=== PATIENT | male | born 2000 | race Caucasian/White ===

== ENCOUNTER 2019-01-24 10:39 | Outpatient (CLI) | payer OTHER ==
--- NOTE | 2019-01-24 11:15 | ULT ---
Exam: Limited abdominal ultrasound: HISTORY: Right lower quadrant pain, right inguinal pain, concern for hernia COMPARISON: None FINDINGS: Right lower quadrant and right inguinal canal region and region of pain as evaluated. No evidence for a bowel containing hernia. No abscess or abnormal fluid collection. IMPRESSION: Unremarkable limited ultrasound examination of the right lower quadrant and right inguinal canal does not demonstrate any bowel containing hernia. Consideration for follow-up CT scan might be of benefit which would be more sensitive in evaluating f at-containing hernias.
== END 2019-01-24 10:40 | disposition home or self-care (01) ==
LOC: SCSRAD 10:39 → MERGE 10:39 → SCSULT 10:40
PROVIDERS: ATTEND Internal Medicine
DX: R10.31 Right lower quadrant pain (principal)
CPT/HCPCS: 76705